=== PATIENT | female | born 1970 | race Caucasian/White ===

== ENCOUNTER 2018-09-14 19:10 | Emergency (ER) | payer MEDICAID, OTHER ==
[~2018-09-14] VITALS: Ht 165.1 cm; Wt 55.8 kg
[2018-09-14 19:14] VITALS: BP 146/102
[2018-09-14] MEDS ORDERED: CLINDAMYCIN 600 MG/4 ML VL IM ONE (23:30)
[2018-09-14] MEDS ORDERED: KETOROLAC TROMETH 60MG/2ML VIAL IM ONE (23:30)
[2018-09-14] MEDS ORDERED: LIDOCAINE VISCOUS 2% 15ML UD PO ONE (23:30)
== END 2018-09-15 00:30 | disposition home or self-care (01) ==
LOC: ER 19:10
DX: K04.7 Periapical abscess without sinus (principal); K02.9 Dental caries, unspecified; Z88.0 Allergy status to penicillin; Z88.1 Allergy status to other antibiotic agents
CPT/HCPCS: 96372